=== PATIENT | female | born 1960 | race Caucasian/White ===

== ENCOUNTER 2025-04-28 05:00 | Emergency (ER) | payer MEDICARE, MEDICAID ==
[~2025-04-28] VITALS: Ht 152.4 cm; Wt 44.0 kg
[~2025-04-28 05:00] MED LIST: DULO-31 PO; GABA-532 PO; HYDR-4353 PO; IBUP-1984 PO; LEVO75TA PO; LISI40TA20 PO; LORA1TAB PO; RANI-647 PO
--- NOTE | 2025-04-28 05:21 | Physician Documentation ---
History of Present Illness ~ Chief Complaint: Anxiety Stated Complaint: WEAKNESS/SOB M BLS Time Seen by MD: 05:19 HPI Patient presents to the emergency room for evaluation of generalized weakness. Patient is tearful as she is feeling stressed out. She states her has been that has an alcoholic and continues to smoke and drink in the house even though she asked him not to. She did call protective Services but she reports they stated that has nothing could do as that has his house. She is working with her primary care provider regarding her anxiety and is being referred to mental health services Medication Reconciliation Allergies: Coded Allergies: No Known Allergies (Unverified , 04/28/25) Scheduled Duloxetine Hcl* (Cymbalta*), 60 MG PO DAILY, (Reported) Gabapentin (Gabapentin), 1 CAP PO TID, (Reported) Hydrocodone Bit/Acetaminophen ([place] 10-325 Tablet), 1 TAB PO Q4H, (Reported) Ibuprofen* (Motrin*), 600 MG PO Q6H, (Reported) Levothyroxine Sodium* (Synthroid*), 1 TAB PO DAILY, (Reported) Lisinopril* (Lisinopril*), 25 MG PO DAILY, (Reported) Lorazepam* (Ativan*), 1 MG PO Q6H, (Reported) Nitrofurantoin Monohyd/M-Cryst (Macrobid 100 mg Capsule), 1 CAP PO Q12H Ranitidine HCl (Acid Rn Supplemental), 1 TAB PO DAILY, (Reported) Review of Systems ROS All review of systems negative except as per HPI Physical Exam Vital Signs: Temperature: 98.2, Source: Oral, Heart Rate: 65, Respiratory Rate: 18, BP: 148/61, Pulse Oximetry: 99, Weight: 44.000 Oxygen Flow Rate: 0 Physical Exam General: Patient is awake, alert, oriented x4 in no acute distress. Tearful Head: Normocephalic and atraumatic. Eyes: Conjunctival normal. EOMI. PERRL. ENT: Mucous membranes moist. Neck: Supple, trachea is midline. Chest: Clear to auscultation bilaterally without rales, rhonchi, or wheezes. There is no accessory muscle use or retractions. Cardiac: RRR without murmurs, gallops, or rubs. Progress Results/Orders Results/Orders Orders - CHARLES LU MD Cult Urine + [place] [address] (04/28/25 08:07) Completed Orders - CHARLES LU MD Cbc/Diff (04/28/25 05:21) Hs Troponin I W Calculations (04/28/25 05:21) Procalcitonin (04/28/25 05:21) CMP (04/28/25 05:21) Thyroid Panel (04/28/25 05:21) Ua W/Microscopic, Cult If Ind (04/28/25 07:31) Vital Signs 04/28/25 04/28/25 04/28/25 04/28/25 05:09 05:45 06:42 07:45 Temp 98.2 Pulse 65 64 61 68 Resp 18 16 18 18 B/P (MAP) 148/61 137/67 (90) 146/57 (86) 116/66 (83) Pulse Ox 99 97 100 100 O2 Flow Rate 0 0 0 0 04/28/25 08:46 Temp 98.6 Pulse 84 Resp 16 B/P (MAP) 128/72 Pulse Ox 99 Laboratory Tests Test 04/28/25 05:34 04/28/25 06:06 04/28/25 07:31 White Blood Count 6.4 Red Blood Count 3.84 L Hemoglobin 12.9 Hematocrit 36.7 Mean Corpuscular Volume 95.4 Mean Corpuscular Hemoglobin 33.6 H Mean Corpuscular Hemoglobin Concent 35.3 Red Cell Distribution Width 12.7 Platelet Count 376 Mean Platelet Volume 7.1 L Neutrophils (%) (Auto) 41.2 L Lymphocytes (%) (Auto) 50.2 Monocytes (%) (Auto) 7.3 Eosinophils (%) (Auto) 0.8 Basophils (%) (Auto) 0.5 Neutrophils # (Auto) 2.7 Lymphocytes # (Auto) 3.2 Monocytes # (Auto) 0.5 Eosinophils # (Auto) 0.0 Basophils # (Auto) 0.0 CBC Comment Sodium Level 133 L Potassium Level 4.2 Chloride Level 96 L Carbon Dioxide Level 30.5 Anion Gap 7 L Blood Urea Nitrogen 20 H Creatinine 0.83 Estimated GFR/1.73 m2 69 BUN/Creatinine Ratio 24.1 H Glucose Level 107 H Calcium Level 9.1 Total Bilirubin 0.5 Aspartate Amino Transf (AST/SGOT) 21 Alanine Aminotransferase (ALT/SGPT) 20 Alkaline Phosphatase 109 Troponin I High Sensitivity 8 Total Protein 7.7 Albumin 4.0 Globulin 3.7 Albumin/Globulin Ratio 1.1 Thyroid Stimulating Hormone (TSH) 2.85 Free Thyroxine 1.39 Chemistry Comments Procalcitonin < 0.05 Urine Specimen Description Non-specified Urine Color Yellow Urine Clarity Slightly cloudy Urine pH 6.5 Urine Specific [place] 1.010 Urine Protein Negative Urine Glucose (UA) Negative Urine Ketones Trace H Urine Occult Blood Negative Urine Nitrite Positive H Urine Bilirubin Negative Urine Urobilinogen 0.2 Urine Leukocyte Esterase Moderate H Urine RBC None seen Urine WBC 10-20 H Urine Squamous Epithelial Cells Moderate Urine Transitional Epithelial Cells Few Urine Bacteria 4+ Urine Mucus None seen Urine Culture Indicated Indicated Volume Urine Centrifuged 10 ml Urine Comment Microbiology Date/Time Source Procedure Growth Status 04/28/25 08:07 Urine Nonspecified Urine Culture - Preliminary Culture received. Resulted Medical Decision Making Additional information obtaine: N/A Findings na Differential Dx:Considerations: Include: Anxiety, Bipolar disorder, Conversion disorder Addendum Sign-out note: I received sign-out on this patient at shift change. Briefly: The patient presents with severe anxiety. Pending labs and urinalysis. I reviewed the patient's labs, which are grossly unremarkable. Urinalysis is concerning for an infection. Re-evaluation: I spoke to the patient. She does endorse having some dysuria over the past couple of days. We will treat for urinary tract infection. She also reports multiple stressors. Overall much of her presentation seems related to stress, and she does not appear to have an other acute medical or surgical emergency. She will be discharged with antibiotics and outpatient follow up. Return precautions given. Chris Huber MD Departure Time of Disposition: 08:38 Disposition: 01 HOME / SELF CARE / HOMELESS Impression: Primary Impression: Anxiety Additional Impression: UTI (urinary tract infection) Condition: Stable Discharge Instructions: General Discharge Instructions, Urinary Tract Infection, Adult Referrals: NO PRIMARY CARE PROVIDER (PCP) Prescriptions Nitrofurantoin Monohyd/M-Cryst (Macrobid 100 mg Capsule) 100 Mg Capsule 1 CAP PO Q12H for 7 Days, #14 CAP 0 Refills Prov: CHRIS HUBER MD 04/28/25 Education Educated: Patient Educated regarding: diagnosis, treatment, need for follow up Signature Scribe Signature: No scribe Attestation: The note accurately reflects work and decisions made by me.Charles Lu MD 04/28/25 05:39 CHARLES LU MD Apr 28, 2025 05:21 CHRIS HUBER MD Apr 28, 2025 08:40
[2025-04-28 06:02] LABS: MEAN PLATELET VOLUME 7.1 FL (7.4-10.4); RED CELL DISTRIBUTION WIDTH 12.7 % (11.5-14.5)
[2025-04-28 06:18] LABS: CREATININE 0.83 MG/DL (0.40-0.90); TOTAL CARBON DIOXIDE 30.5 MMOL/L (24-32); eCRCL 46 ML/MIN; eGFR 69 ML/MIN
[2025-04-28 07:54] LABS: LEUKOCYTE ESTERASE ,URINE MODERATE (Neg); NITRITES, URINE POSITIVE (Neg); OCCULT BLOOD,URINE NEGATIVE (Neg)
[2025-04-28 07:55] LABS: UA COLLECTION TYPE NON-SPECIFIED
[2025-04-28 08:06] LABS: MUCUS STRANDS NONE SEEN /LPF (Neg); SQUAMOUS EPITHELIAL CELL,UR MODERATE /LPF (FEW)
[2025-04-28] MEDS: CefTRIAXone/D5W-Rocephin 1gm 50 ML IV ONE (08:35)
[2025-04-28] MEDS ORDERED: NITR100C6 PO (08:39)
[2025-04-28 08:46] VITALS: BP 128/72; PULSE 84; RESP 16; TEMP 98.6; O2SAT 99
== END 2025-04-28 08:49 | disposition home or self-care (01) ==
LOC: ER 05:01
DX: F41.9 Anxiety disorder, unspecified (principal); N39.0 Urinary tract infection, site not specified; F17.200 Nicotine dependence, unspecified, uncomplicated; Z79.899 Other long term (current) drug therapy
CPT/HCPCS: 36415; 80053; 81001; 84145; 84439; 84443; 84484; 85025; 87077; 87088; 87186; 96365; 99285; J0696; J7050